=== PATIENT | male | born 1995 | race Caucasian/White ===

== ENCOUNTER 2017-06-04 19:34 | Emergency (ER) | payer BC ==
--- NOTE | 2017-06-04 19:56 | EDPHY ---
H & P Stated Complaint: cough fever body aches Time Seen by Provider: 06/04/17 19:56 - Personal History Current Tetanus/Diphtheria Vaccine: Yes Current Tetanus Diphtheria and Acellular Pertussis (TDAP): Yes - Medical/Surgical History Hx Asthma: No Hx Chronic Respiratory Disease: No Hx Diabetes: No Hx Cardiac Disease: No Hx Renal Disease: No Hx Cirrhosis: No Hx Alcoholism: No Hx HIV/AIDS: No Hx Splenectomy or Spleen Trauma: No - Social History Smoking Status: Current some day smoker Constitutional: Initial Vital Signs Temperature (C) 37 C 06/04/17 19:42 Heart Rate 111 H 06/04/17 19:42 Respiratory Rate 18 06/04/17 19:42 Blood Pressure 127/82 H 06/04/17 19:42 O2 Sat (%) 93 06/04/17 19:42 O2 Delivery Mode Room Air Allergies/Adverse Reactions: No Known Allergies Allergy (Unverified 04/17/13 13:04) Home Medications: Medication Instructions Recorded AZITHROMYCIN [Z-PACK] 250 mg PO DAILY #1 packet 06/04/17 HYDROcodone/HOMATROPINE HYCODA 1 tsp PO Q4-6PRN PRN #120 ml 06/04/17 [Hycodan Syrup (RX)] Medical Decision Making ED Course/Re-evaluation: CHIEF COMPLAINT: Fever HISTORY OF PRESENT ILLNESS: This patient is a healthy 21 year old complaining of cough, fever, and body aches onset yesterday morning. Initially he developed congestion and a mild cough. Last night, he felt febrile and could not sleep well last night. Today, his cough is worsening and he endorses some blood-tinged sputum. He denies any ill contacts. He believes he has received a flu vaccine this year. He denies chest pain, shortness of breath, vomiting, diarrhea, or other associated symptoms. REVIEW OF SYSTEMS: A 10 point review of systems was performed and is negative with the exception of the elements mentioned in the history of present illness. PHYSICAL EXAM: HR, BP, O2 Sat, RR. Temp noted General Appearance: Alert, well hydrated, appropriate, and non-toxic appearing. Head: Atraumatic without scalp tenderness or obvious injury Eyes: Pupils equal, round, reactive to light and accommodation, EOMI, no trauma , no injection. Ears: Clear bilaterally, no perforation, normal landmarks Nose: Atraumatic, no rhinorrhea, clear. Throat: There is no erythema or exudates, no lesions, normal tonsils, mucus membranes moist. Neck: Supple, nontender, no lymphadenopathy. Respiratory: Coarse rhonchi. No retractions, no distress, and no accessory muscle use. Cardiovascular: Regular rate and rhythm, no murmurs, rubs, or gallops. Good capillary refill all extremities. Gastrointestinal: Abdomen is soft, nontender, non-distended. Musculoskeletal: Normal active ROM of all extremities, atraumatic. Neurological: Alert, appropriate, and interactive. Nonfocal neuro exam. Skin: No rashes, good turgor, no nodules on palpation. Past medical history: Denies. Past surgical history: Noncontributory Family history: Noncontributory Social history: Student at [employer]. Lives in [place]. Single. DIFFERENTIAL DIAGNOSIS: The differential diagnosis for the patient's fever included but was not limited to bronchitis, pneumonia, influenza, viral syndrome, meningitis, and sepsis. MEDICAL DECISION MAKIN21 year old male presents with two day history of cough, fever, and body aches. Exam reveals coarse rhonchi bilaterally, otherwise unremarkable. Plan for flu swab. Flu swab negative. Suspect acute bronchitis. Plan to discharge home in good condition with prescription for Z-pack and Hycodan cough syrup for cough suppression. Will administer 500mg PO Zithromax here in the emergency department. Follow up and return precautions discussed. The patient is comfortable with this plan. - Data Points Laboratory Results: 06/04/17 20:05 Nasal Influenza A PCR NEGATIVE FOR FLU A (NEGATIVE) Nasal Influenza B PCR NEGATIVE FOR FLU B (NEGATIVE) Departure - Departure Disposition: Home, Routine, Self-Care Clinical Impression: Acute bronchitis Qualifiers: Bronchitis organism: other organism Qualified Code(s): J20.8 - Acute bronchitis due to other specified organisms Condition: Good Instructions: Acute Bronchitis (ED) Additional Instructions: 1. Take Zithromax as prescribed. It is important to finish your entire course of antibiotics even if you are feeling better. 2. Take Hycodan syrup as prescribed as needed for cough. 3. Take Mucinex, available over the counter, to relieve symptoms. 4. Follow up with your primary care provider for further evaluation. 5. Return to the emergency department for fever, uncontrollable cough, chest pain, shortness of breath, or other worsening of condition. Referrals: NORMA MARTEL [Other] - As per Instructions Lázaro Eckert DO [Doctor of Osteopathy] - As per Instructions Prescriptions: AZITHROMYCIN [Z-PACK] 250 mg PO DAILY #1 packet HYDROcodone/HOMATROPINE HYCODA [Hycodan Syrup (RX)] 1 tsp PO Q4-6PRN PRN #120 ml PRN Reason: Cough, Moderate Report Scribed for: Abraham Sanchez Report Scribed by: Marcella Bennett Date of Report: 06/04/17 Time of Report: 21:29
[2017-06-04] MEDS ORDERED: AZITHROMYCIN 250 MG TAB PO ONE (21:26)
[2017-06-04] MEDS ORDERED: HYDROCOD/APAP 5/325 PREPACK#6 BTL TAKEHOME ONE (21:28)
[2017-06-04 21:42] VITALS: BP 124/74; PULSE 90; RESP 16; TEMP 99.7; O2SAT 94
== END 2017-06-04 21:42 | disposition home or self-care (01) ==
DX: J20.8 Acute bronchitis due to other specified organisms (principal); F17.200 Nicotine dependence, unspecified, uncomplicated

== ENCOUNTER 2017-06-06 15:03 | Observation (INO) | payer BC ==
--- NOTE | 2017-06-06 15:45 | EDPHY ---
H & P Time Seen by Provider: 06/06/17 15:20 HPI/ROS: CHIEF COMPLAINT: Coughing blood HISTORY OF PRESENT ILLNESS: This patient is a 21 year old male with recent bronchitis diagnosis complaining of coughing and spitting up blood onset 45 minutes prior to arrival. He woke from a nap this afternoon coughing and coughed blood into his sink. The bleeding has not stopped since that time. He has been sick with a cough for four days, and was evaluated here in the emergency department 06/04/17 and d/c with azithromycin and Hycodan syrup for cough suppression. The patient denies any surgical history or any known family history of clotting disorders. No chest pain, shortness of breath, vomiting, diarrhea, or other associated symptoms REVIEW OF SYSTEMS: A 10 point review of systems was performed and is negative with the exception of the elements mentioned in the history of present illness. Past Medical/Surgical History: Denies. Social History: Student at [employer]. Lives in [place]. Single. Occasional tobacco use. Smoking Status: Current some day smoker Physical Exam: General Appearance: Alert, pleasant Eyes: Pupils equal and round, no conjunctival pallor or injection ENT, Mouth: Persistent bleeding from posterior pharynx, not associated with cough. Mucous membranes moist Neck: Normal inspection Respiratory: Lungs are clear to auscultation Cardiovascular: Regular tachycardia Gastrointestinal: Abdomen is soft and non- tender Neurological: A&O, nonfocal, normal gait Skin: Warm and dry, no rash Extremities: Nontender, no pedal edema Psychiatric: Mood and affect normal Constitutional: Initial Vital Signs Temperature (C) 36.9 C 06/06/17 15:07 Heart Rate 124 H 06/06/17 15:07 Respiratory Rate 18 06/06/17 15:07 Blood Pressure 110/82 H 06/06/17 15:07 O2 Sat (%) 94 06/06/17 15:07 O2 Delivery Mode Room Air Allergies/Adverse Reactions: No Known Allergies Allergy (Unverified 04/17/13 13:04) Home Medications: Medication Instructions Recorded AZITHROMYCIN [Z-PACK] 250 mg PO DAILY #1 packet 06/04/17 HYDROcodone/HOMATROPINE HYCODA 1 tsp PO Q4-6PRN PRN #120 ml 06/04/17 [Hycodan Syrup (RX)] Medical Decision Making - Diagnostics Imaging Results: Imaging Impressions Chest X-Ray 06/06/17 15:20 Impression: Findings consistent with airways disease are noted. Neck CTA 06/06/17 16:26 Impression: 1. Marked tonsillar enlargement with moderate narrowing of the airway. 2. Possible extravasated contrast between the tonsils, with no appreciable evidence of active extravasation. 3. Congenital spinal canal narrowing. 4. Additional findings as above. Stenoses are calculated using [place] Symptomatic Carotid Endarterectomy Trial (NASCET) criteria. Findings discussed with Dr. Marily Glaser on June 06, 2017 at 1702 hours. Imaging: Discussed imaging studies w/ call center recruiter Radiologist ED Course/Re-evaluation: 21 y/o male with recent diagnosis of acute bronchitis presents with persistent bleeding from the throat. The bleeding is ongoing and not associated with cough. The patient is currently using suction. Plan for chest x-ray labs including CBC, coag. IV normal saline 1 L given. Plan to consult with ENT. Chest x-ray shows evidence of airways disease, negative for pneumonia or other acute processes. 15:[address] Rivera, reading specialist information developer. 16:24 Dr. Rivera at bedside. She suspects right tonsillar bleed possibly secondary to hemorrhagic tonsillitis. No other evidence of bleeding noted on scope. She recommends stat CTA. Plan to administer 10mg IV dexamethasone. Plan for additional labs including chemistries, type and screen. 17:[address] Shine, radiologist. CTA negative for acute processes. The patient was taken directly to the operating room by Dr. Rivera. Persistent mild bleeding rt tonsillar area during ED stay. Differential Diagnosis: Includes though is not limited to hemoptysis, severe anemia, hypotension, pseudoaneurysm - Data Points Laboratory Results: Laboratory Results 06/06/17 15:25 06/06/17 15:25 06/06/17 06/06/17 06/06/17 16:30 15:25 15:25 WBC RBC Hgb Hct MCV MCH MCHC RDW Plt Count MPV Neut % (Auto) Lymph % (Auto) [place] % (Auto) Eos % (Auto) Baso % (Auto) Nucleat RBC Rel Count Absolute Neuts (auto) Absolute Lymphs (auto) Absolute Monos (auto) Absolute Eos (auto) Absolute Basos (auto) Absolute Nucleated RBC Immature Gran % Immature Gran # PT 14.4 SEC SEC (12.0-15.0) INR 1.10 (0.83-1.16) APTT 31.4 SEC SEC (23.0-38.0) Sodium 137 mEq/L mEq/L (134-144) Potassium 3.8 mEq/L mEq/L (3.5-5.2) Chloride 95 mEq/L L mEq/L (97-110) Carbon Dioxide 24 mEq/l mEq/l (22-31) Anion Gap 18 mEq/L H mEq/L (8-16) BUN 14 mg/dL mg/dL (7-23) Creatinine 1.2 mg/dL mg/dL (0.7-1.3) Estimated GFR > 60 Glucose 103 mg/dL H mg/dL (70-100) Calcium 9.9 mg/dL mg/dL (8.5-10.4) Patient ABO/Rh A POSITIVE Antibody Screen NEGATIVE 06/06/17 15:25 WBC 10.83 10^3/uL H 10^3/uL (3.80-9.50) RBC 5.40 10^6/uL 10^6/uL (4.40-6.38) Hgb 16.8 g/dL g/dL (13.7-17.5) Hct 44.8 % % (40.0-51.0) MCV 83.0 fL fL (81.5-99.8) MCH 31.1 pg pg (27.9-34.1) MCHC 37.5 g/dL H g/dL (32.4-36.7) RDW 11.9 % % (11.5-15.2) Plt Count 202 10^3/uL 10^3/uL (150-400) MPV 9.8 fL fL (8.7-11.7) Neut % (Auto) 75.5 % H % (39.3-74.2) Lymph % (Auto) 11.2 % L % (15.0-45.0) [place] % (Auto) 12.6 % % (4.5-13.0) Eos % (Auto) 0.1 % L % (0.6-7.6) Baso % (Auto) 0.4 % % (0.3-1.7) Nucleat RBC Rel Count 0.0 % % (0.0-0.2) Absolute Neuts (auto) 8.19 10^3/uL H 10^3/uL (1.70-6.50) Absolute Lymphs (auto) 1.21 10^3/uL 10^3/uL (1.00-3.00) Absolute Monos (auto) 1.36 10^3/uL H 10^3/uL (0.30-0.80) Absolute Eos (auto) 0.01 10^3/uL L 10^3/uL (0.03-0.40) Absolute Basos (auto) 0.04 10^3/uL 10^3/uL (0.02-0.10) Absolute Nucleated RBC 0.00 10^3/uL 10^3/uL (0-0.01) Immature Gran % 0.2 % % (0.0-1.1) Immature Gran # 0.02 10^3/uL 10^3/uL (0.00-0.10) PT INR APTT Sodium Potassium Chloride Carbon Dioxide Anion Gap BUN Creatinine Estimated GFR Glucose Calcium Patient ABO/Rh Antibody Screen Medications Given: Potassium Chloride/Dextrose/Sod Cl (D5w 1/2 Ns W/ 20 Kcl/L) 1,000 mls @ 100 mls /hr IV CONT DOLORES Stop: 06/07/17 05:44 Last Admin: 06/06/17 21:28 Dose: 1,000 mls Ampicillin Sodium/Sulbactam (Sodium 3 gm/ Sodium Chloride) 100 mls @ 200 mls/ hr IV Q6HRS DOLORES PRN Reason: Protocol Stop: 07/06/17 19:34 Last Admin: 06/06/17 21:28 Dose: 100 mls Discontinued Medications Bupivacaine HCl (Sensorcaine 0.25% Sdv) Confirm Administered Dose 30 ml .ROUTE .STK-MED ONE Stop: 06/06/17 17:38 Last Admin: 06/06/17 22:17 Dose: Not Given Dexamethasone (Decadron Injection) 10 mg IVP EDNOW ONE Stop: 06/06/17 16:49 Last Admin: 06/06/17 16:51 Dose: 10 mg Hydrogen Peroxide (Hydrogen Peroxide) 1 jono TP EDNOW ONE Stop: 06/06/17 17:30 Last Admin: 06/06/17 17:31 Dose: 1 jono Sodium Chloride (Ns) 1,000 mls @ 0 mls/hr IV EDNOW ONE; Wide Open PRN Reason: Protocol Stop: 06/06/17 15:54 Last Admin: 06/06/17 16:25 Dose: 1,000 mls Lactated Ringer's (Lr) 1,000 mls @ 0 mls/hr IV ONCE ONE PRN Reason: As Directed Stop: 06/06/17 18:11 Last Admin: 06/06/17 19:11 Dose: Not Given Midazolam HCl (Versed) 1 - 2 mg IVP ONCALL ONE Stop: 06/06/17 18:08 Last Admin: 06/06/17 22:17 Dose: Not Given Oxymetazoline HCl (Afrin Nasal [place]) 2 sprays EACHNARE EDNOW ONE Stop: 06/06/17 17:30 Last Admin: 06/06/17 17:32 Dose: 2 sprays Departure - Departure Disposition: [facility] Inpatient Acute Clinical Impression: Right tonsillar hemorrhage Condition: Fair Report Scribed for: Marily Glaser Report Scribed by: Marcella Bennett Date of Report: 06/06/17 Time of Report: 15:45 Physician Review and Approval Statement: 06/06/17 15:45 Portions of this note were transcribed by a medical staff director. I personally performed a history, physical exam, medical decision making, and confirmed accuracy of information the transcribed note.
[2017-06-06] MEDS ORDERED: NS 1,000 ML IV ONE (15:53)
[2017-06-06 15:58] LABS: % IMMATURE GRANULYOCYTES 0.2 % (0.0-1.1); ABSOLUTE IMMATURE GRANULOCYTES 0.02 10^3/uL (0.00-0.10); ADD DIFF? NO; ADD MORPH? NO; ADD SCAN? NO; ATYPICAL LYMPHOCYTE FLAG 40 (0-99); FRAGMENT RBC FLAG 0 (0-99); HEMATOCRIT 44.8 % (40.0-51.0); HEMOGLOBIN 16.8 g/dL (13.7-17.5); LEFT SHIFT FLG 10 (0-99); MEAN CELL HEMOGLOBIN 31.1 pg (27.9-34.1); MEAN CELL HEMOGLOBIN CONCENTR. 37.5 g/dL (32.4-36.7); MEAN PLATELET VOLUME 9.8 fL (8.7-11.7); PLATELET CLUMPS FLAG 10 (0-99); PLATELET COUNT 202 10^3/uL (150-400); RED CELL DISTRIBUTION WIDTH 11.9 % (11.5-15.2)
[2017-06-06 16:06] LABS: LIPEMIA HEMOLYSIS FLAG 100 (0-99)
[2017-06-06 16:14] LABS: APTT 31.4 SEC (23.0-38.0)
[2017-06-06] MEDS ORDERED: OXYMETAZOLINE 30 ML NASAL SPRAY ONE (16:17)
[2017-06-06] MEDS ORDERED: IOPAMIDOL (ISOVUE 370) 100 ML BTL IV ONE (16:28)
[2017-06-06 16:40] LABS: ANION GAP 18 mEq/L (8-16); CALCIUM 9.9 mg/dL (8.5-10.4); CARBON DIOXIDE 24 mEq/l (22-31); CHLORIDE 95 mEq/L (97-110); CREATININE 1.2 mg/dL (0.7-1.3); GLOMERULAR FILTRATION RATE > 60; GLUCOSE 103 mg/dL (70-100); POTASSIUM 3.8 mEq/L (3.5-5.2); SODIUM 137 mEq/L (134-144)
[2017-06-06] MEDS ORDERED: DEXAMETHASONE 10 MG/ML VIAL IVP ONE (16:48)
[2017-06-06] MEDS ORDERED: SILVER NITRATE APPLICATOR 1 APPL TP ONE ×2 (17:11→17:13)
[2017-06-06] MEDS ORDERED: HYDROGEN PEROXIDE 236 ML BOTTLE TP ONE ×3 (17:13→17:29)
--- NOTE | 2017-06-06 17:28 | PDCONSULT ---
Front Attendant Note: Full consult to be dictated. Pt with hemorrhagic tonsillitis. CTA negative for any other concerning pathology. He has never had surgery before and is healthy. Hasn't eaten since last night. To OR for cautery, inability to stop with more conservative measures, inc AgNo3 use. Consent obtained.
[2017-06-06 17:29] LABS: INR 1.1 (0.83-1.16); PROTIME(PATIENT) 14.4 SEC (12.0-15.0)
[2017-06-06] MEDS ORDERED: OXYMETAZOLINE 30 ML NASAL SPRAY EACHNARE ONE (17:29)
[2017-06-06] MEDS ORDERED: BUPIVACAINE 0.25% 30 ML SDV ONE (17:37)
[2017-06-06] MEDS ORDERED: MIDAZOLAM 2 MG/2 ML VIAL ONE (18:07)
[2017-06-06] MEDS ORDERED: MIDAZOLAM 2 MG/2 ML VIAL IVP ONE (18:07)
--- NOTE | 2017-06-06 18:07 | PDANEPAE ---
ANE History of Present Illness acute tonsillitis now with tonsil bleed s/f urgent tonsilectomy ANE Past Medical History Past Medical History: negative except recent bronchitis - Pulmonary History Hx Oxygen in Use at Home: No - Endocrine History Hx Diabetes: No ANE Review of Systems Review of Systems: - Exercise capacity Exercise capacity: >=4 METS ANE Patient History - Allergies Allergies/Adverse Reactions: No Known Allergies Allergy (Unverified 04/17/13 13:04) - Home Medications Home medications: home medication list seen and reviewed - NPO status NPO Status: no food or drink >8 hours NPO Since - Liquids (Date): 06/06/17 - Anes Hx Anes Hx: no prior problems - Smoking Hx Smoking Status: Current some day smoker Marijuana use: Yes - Alcohol Use Alcohol Use: Rarely - Family Anes Hx Family Anes Hx: none ANE Labs/Vital Signs - Labs Result Diagrams: 06/06/17 15:25 06/06/17 15:25 - Vital Signs Blood Pressure: 123/83 Heart Rate: 85 Respiratory Rate: 18 O2 Sat (%): 95 Height: 190.5 cm Weight: 90.718 kg ANE Physical Exam - Airway Neck exam: FROM Mallampati Score: Class 1 Mouth exam: normal dental/mouth exam - Pulmonary Pulmonary: no respiratory distress - Cardiovascular Cardiovascular: regular rate and rhythym - ASA Status ASA Status: I, E ANE Anesthesia Plan Anesthesia Plan: general endotracheal anesthesia (R/B/A explained and patient agrees to proceed)
[2017-06-06] MEDS ORDERED: LR 1,000 ML IV ONE (18:10)
[2017-06-06] MEDS ORDERED: REMIFENTANIL HCL 1 MG VIAL ONE (18:14)
[2017-06-06] MEDS ORDERED: PROPOFOL/EMULSION 500 MG/50 ML BOTTLE IV ONE (18:14)
[2017-06-06] MEDS ORDERED: fentaNYL 100 MCG/2 ML INJ ONE (18:14)
[2017-06-06] MEDS ORDERED: DEXAMETHASONE 4 MG/ML VIAL ONE ×2 (18:17)
[2017-06-06] MEDS ORDERED: ONDANSETRON 4 MG/2 ML VIAL ONE (18:17)
[2017-06-06] MEDS ORDERED: LIDOCAINE 2% 100 MG/5 ML SYR ONE (18:20)
[2017-06-06] MEDS ORDERED: PETROLAT,WHT/MIN OIL/SOD CHL 3.5 GM OPHT.OINT ONE (18:28)
--- NOTE | 2017-06-06 18:54 | POSTOPPROG ---
Post Op Note Date of Operation: 06/06/17 Surgeon: Estrellita Rivera Anesthesiologist: willy Anesthesia: GET(General Endotracheal) Pre-op Diagnosis: tonsil bleed Post-op Diagnosis: same Procedure: cautery of tonsils B Findings: prominent vessels B, more on the R superior region Inf/Abcess present in the surg proc area at time of surgery?: Yes Depth: Superfical (Skin SQ) EBL: Minimal Complications: none apparent
--- NOTE | 2017-06-06 18:55 | SOAPPROG ---
SOAP Progress Note Assessment/Plan: Assessment: Pt to be admitted overnight for supportive care. Should be on Unasyn then d/c on Augmentin. 1 more dose of decadron 12 hrs after last dose then stop. If not having any bleeding and tolerating po in am, can d/c. Plan: 06/06/17 18:54 Subjective: hemorrhagic tonsillitis, brisk bleeding from R tonsil, post cautery Objective: Vital Signs Temp Pulse Resp BP Pulse Ox 37.8 C 85 18 123/83 H 95 06/06/17 18:03 06/06/17 18:07 06/06/17 18:07 06/06/17 18:07 06/06/17 18:07 06/05/17 06/06/17 06/07/17 05:59 05:59 05:59 Intake Total 1000 Balance 1000 PT 14.4 SEC (12.0-15.0) 06/06/17 15:25 INR 1.10 (0.83-1.16) 06/06/17 15:25 ICD10 Worksheet Patient Problems: Problems Problem Status Onset Right tonsillar hemorrhage Acute
[2017-06-06] MEDS ORDERED: HYDROCODONE/APAP 5/325 TAB PO PRN (18:57)
[2017-06-06] MEDS ORDERED: NALOXONE HCL 0.4 MG/ML INJ IVP PRN (18:57)
[2017-06-06] MEDS ORDERED: ONDANSETRON 4 MG/2 ML VIAL IVP PRN ×2 (18:57→19:33)
[2017-06-06] MEDS ORDERED: METOCLOPRAMIDE 10 MG/2 ML VIAL IVP PRN (18:57)
[2017-06-06] MEDS ORDERED: PROMETHAZINE HCL 25 MG/ML INJ IVP PRN (18:57)
[2017-06-06] MEDS ORDERED: LABETALOL HCL 5 MG/ML 20 ML MDV IVP PRN (18:57)
[2017-06-06] MEDS ORDERED: LR 500 ML IV PRN (18:57)
[2017-06-06] MEDS ORDERED: PHENYLEPHRINE HCL 100 MCG/ML SYR IVP PRN (18:57)
[2017-06-06] MEDS ORDERED: ACETAMINOPHEN 500 MG TAB PO PRN (18:57)
[2017-06-06] MEDS ORDERED: ALBUTEROL 3 ML DEYVIAL IH PRN (18:57)
[2017-06-06] MEDS ORDERED: OXYCODONE/APAP 5/325 TAB PO PRN (18:57)
[2017-06-06] MEDS ORDERED: DEXAMETHASONE 4 MG/ML VIAL IVP PRN (18:57)
[2017-06-06] MEDS ORDERED: MEPERIDINE 25 MG/ML SYR IVP PRN (18:57)
[2017-06-06] MEDS ORDERED: fentaNYL 100 MCG/2 ML INJ IVP PRN (18:57)
--- NOTE | 2017-06-06 18:59 | POSTANESTH ---
Post Anesthetic Evaluation Cardiovascular Status: Normal, Stable Respiratory Status: Normal, Stable Level of Consciousness/Mental Status: Can Participate in Eval Pain Control: Adequate, Prn Tx Ordered Nausea/Vomiting Control: Adequate, Prn Tx Ordered Complications Possibly Related to Anesthesia: None Noted
[2017-06-06] MEDS ORDERED: HYDROmorphONE/DILAUDID 1 MG/ML INJ IVP PRN (19:33)
[2017-06-06] MEDS ORDERED: ONDANSETRON DISINTEGRATING 4 MG TAB PO PRN (19:33)
[2017-06-06] MEDS ORDERED: ACETAMINOPHEN 325 MG TAB PO PRN (19:33)
[2017-06-06] MEDS ORDERED: guaiFENesin/CODEINE PHOS 10 ML UDCUP PO PRN (19:36)
[2017-06-06] MEDS ORDERED: HYDROmorphone HCL/NS/PF 0.4 MG/2 ML SYR IVP PRN (19:39)
[2017-06-06] MEDS ORDERED: D5W 1/2 NS W/ 20 KCl/L 1,000 ML IV SCH (19:45)
--- NOTE | 2017-06-06 20:16 | GHP ---
[f rep st] HISTORY AND PHYSICAL DATE OF ADMISSION: 06/06/2017 HISTORY OF PRESENT ILLNESS: The patient is a 21-year-old gentleman with no past medical history who presents with sore throat and cough. He has been sick for about 4 or 5 days with an upper respirator y infection with a sore throat. He started spitting up blood today; it went on for about 45 minutes so he sought care. He had a cough for 4 days. Seen here 2 days ago and discharged with azithromycin and cough syrup. He has had some subjective fevers. No chills. Some shortness of breath. REVIEW OF SYSTEMS: A complete 10-point review of systems was conducted and negative except as noted in the HPI. PAST MEDICAL HISTORY: None. SOCIAL HISTORY: He is a student at the [employer] from [place], [place]. He li ves in [place]. Occasional tobacco. Rare alcohol. FAMILY HISTORY: Reviewed and unremarkable. No history of bleeding problems. ALLERGIES: No known drug allergies. HOME MEDICATIONS: None other than the ones that were recently prescribed. PHYSICAL EXAMINATION: PRESENTING VITALS: Temperature 36.9, blood pressure 110/82, pulse 124 now in the 80s, breathing 18 a minute, 94 on room air. GENERAL: No acute distress. Hot potato voice. HEEN T: Sclerae anicteric. Oropharynx clear. Mucous membranes moist. His oropharynx shows some dried bl ood. NECK: Supple without lymphadenopathy or JVD. LUNGS: Clear to auscultation bilaterally. HEAR T: S1, S2 without murmurs. ABDOMEN: Soft, nontender, nondistended. LOWER EXTREMITIES: Without ed freda. Calves are nontender. SKIN: Without rash. NEUROLOGIC: Exam is nonfocal. LABORATORY: White count 10.8, hematocrit 48, platelets are 202,000, INR is 1.1. Chem 7: Sodium 137 , potassium 3.8, chloride 95, bicarb 24, BUN 14, creatinine 1.2 which is a normal value, glucose is 1 03. Group A strep is negative. Chest x-ray, interpreted by me, shows mild airway disease. No infiltrate. CTA of the neck shows ton sillar enlargement with moderate narrowing of the airway. No active extravasation of contrast. I di scussed the case Dr. Estrellita Rivera. ASSESSMENT/PLAN: A 21-year-old gentleman with hemorrhagic tonsillitis status post tonsillectomy. 1. Status post tonsillectomy. A wired jaw diet or post tonsillectomy diet. Pain medicine as requir ed. 2. Acute hemorrhage. I suspect the patient will have melena in the morning. We will check a hemato crit. We will add Unasyn and another dose of steroids. 3. Tachycardia. I think this is secondary to his clinical presentation. Will follow. 4. Pain. IV Dilaudid. Pain pills as tolerated. 5. Prophylaxis. Low risk, active bleeding. Sequential compression devices. /[id number]/MODL
[2017-06-06] MEDS: AMPICILLIN/SULBACTAM 3 GM in NS 100 ML IV SCH (21:28)
--- NOTE | 2017-06-07 00:11 | GOP ---
[f rep st] OPERATIVE REPORT DATE OF OPERATION: 06/06/2017 SURGEON: Estrellita Rivera MD ANESTHESIA: General. PREOPERATIVE DIAGNOSIS: Hemorrhagic tonsillitis. POSTOPERATIVE DIAGNOSIS: Hemorrhagic tonsillitis. PROCEDURE PERFORMED: Bilateral tonsillar cautery. FINDINGS: Patient was found to have a large dilated vessel in the right superior aspect of the tonsi llar pole region. There was also some exudate throughout the tonsils, and tonsils are 3+. ESTIMATED BLOOD LOSS: Minimal. INDICATIONS: The patient is a very pleasant 21-year-old man who has a history of a sore throat for 4 days as well as significant coughing. He was diagnosed with bronchitis 2 days ago, given azithromyc in. He states that he started coughing at home and started coughing up blood and has not stopped sin ce then. This was about 2 hours ago. We attempted to get this to stop in the ER, which it did not, and so he was brought to the OR. DESCRIPTION OF PROCEDURE: Patient was first seen in the preoperative area where informed consent was obtained. He was then brought back to the operating room. Anesthesia sedated and intubated him. T he bed was turned 90 degrees. A shoulder roll was placed. He was prepped and draped in normal fashi on. A Ace-Rory mouth gag was placed in the oral cavity and then retracted and suspended giving go od visualization of the oropharynx. He had very large, almost 4+, tonsils that were cryptic. There was some exudate bilaterally, and he had an area of small ooze with a dilated vessel at the superior aspect of the tonsil. This was cauterized using the bipolar cautery on a low setting. An adenoid mi rror was used to evaluate the adenoid bed. Some bloody mucus was suctioned from this area. It was s omewhat difficult to visualize the oropharynx secondary to how large the tonsils were, but the adenoi d mirror was used to evaluate the posterior aspect of the tonsils as well as the inferior part of the tonsils, and there were no other further active bleeding areas. Bipolar cautery again was used to c auterize the superior aspect of both tonsils where the dilated vessels were, but it was especially mo re so on the right. Once this was done, saline was used to irrigate out the oral cavity. Then an or ogastric tube was placed and then suctioned until clear. At this point, all instruments were removed . The patient was turned back over to Anesthesia where he was awakened, extubated, and taken to PACU in stable condition. There were no complications, and he tolerated the procedure well. COMPLICATIONS: None. /[id number]/MODL
[2017-06-07] MEDS: AMPICILLIN/SULBACTAM 3 GM in NS 100 ML IV SCH ×5 (02:32→17:41)
--- NOTE | 2017-06-07 05:01 | GCON ---
[f rep st] CONSULTATION Corrected report DATE OF CONSULTATION: 06/06/2017 CHIEF COMPLAINT: Hemoptysis. HISTORY OF PRESENT ILLNESS: This is a patient who got diagnosed with bronchitis a couple days ago. He has had a sore throat as well as significant cough for about 4-5 days. He was given penicillin a few days ago in the ER secondary to having been diagnosed with bronchitis. He states he has coughed up a little bit of blood over the past couple days, but nothing significant, although about an hour before presentation to the ER, he woke up coughing quite a bit of blood and blood clot in the sink. It has not stopped since they came to the ER. He has not ever had surgery. He still has his tonsils. He denies headache. He is complaining of a little bit of abdominal pain that just started. He complains of shortness of breath, but only when the clots build up and then he has to cough them out and then he feels fine. He does have a history of occasional tobacco use. PAST MEDICAL HISTORY: None. SOCIAL HISTORY: Tobacco use. ALLERGIES: No known drug allergies. PHYSICAL EXAMINATION: He is awake, alert, in no apparent distress. Cranial nerves II through XII are grossly intact. Exam of the ears show no hemotympanum or effusion bilaterally. Nose shows a deviated septum to the left , but no bleeding. Oral cavity and oropharynx show tonsils that are 3+ with some exudate, especially on the left. He has a significant amount of blood in the oropharynx and this looks to be coming from the superior aspect of the right tonsil. Neck shows some bilateral cervical lymphadenopathy. Trachea is midline. His vital signs are stable. He has no stridor, wheeze, and he is saturating in the high 90s on room air. A flexible fiberoptic laryngoscopy was done to confirm patent airway. After verbal and informed consent was obtained I sprayed 1 cc of Afrin and 4% lidocaine into the nose bilaterally. Once this had sufficient time to act, the right naris was passed with the scope. This was normal. Nasopharynx was clear. Oropharynx shows large tonsils with bleeding throughout. It is difficult to see 1 spot. Oropharynx is symmetric. Bilateral vocal cords are mobile. He has no swelling or edema or obstruction of the airway. The scope was removed. ASSESSMENT AND PLAN: This is a patient who has what looks like acute hemorrhagic tonsillitis. This seems to be coming mostly from the right side and seems somewhat profuse. An urgent CTA was done just to confirm that there was no other abnormal pathology that would be causing this, as his presentation is somewhat abnormal. The CTA was evaluated with Dr. Shine and there were no obvious abnormalities besides some dilated blood vessels likely along the surface of the tonsils bilaterally. I discussed with the patient consideration for surgery. We initially tried gargling with cold water as well as hydrogen peroxide. I also tried some silver nitrate cautery over the right tonsil, although this did not seem to help at all and he continued to have fairly profuse bleeding, more on the right than the left. It was felt that he would need surgery, so informed consent was obtained for cauterization of the tonsils bilaterally. The OR was called and he will be taken today. He has not eaten any food since last night and has been drinking water just throughout the day. All of his questions were answered and he agreed, so we will plan to go to the OR now. /[id number]/MODL Ramana pt, 06/11/17, darrius VILLAR
[2017-06-07 06:03] LABS: % IMMATURE GRANULYOCYTES 0.1 % (0.0-1.1); ABSOLUTE IMMATURE GRANULOCYTES 0.01 10^3/uL (0.00-0.10); ADD DIFF? NO; ADD MORPH? NO; ADD SCAN? NO; ATYPICAL LYMPHOCYTE FLAG 40 (0-99); FRAGMENT RBC FLAG 0 (0-99); HEMATOCRIT 41.3 % (40.0-51.0); HEMOGLOBIN 14.8 g/dL (13.7-17.5); LEFT SHIFT FLG 0 (0-99); LIPEMIA HEMOLYSIS FLAG 90 (0-99); MEAN CELL HEMOGLOBIN 30.3 pg (27.9-34.1); MEAN CELL HEMOGLOBIN CONCENTR. 35.8 g/dL (32.4-36.7); MEAN CELL VOLUME 84.5 fL (81.5-99.8); MEAN PLATELET VOLUME 9.7 fL (8.7-11.7); PLATELET CLUMPS FLAG 0 (0-99); PLATELET COUNT 193 10^3/uL (150-400); RED BLOOD CELL COUNT 4.89 10^6/uL (4.40-6.38); RED CELL DISTRIBUTION WIDTH 11.9 % (11.5-15.2)
[2017-06-07 06:20] LABS: ANION GAP 14 mEq/L (8-16); CARBON DIOXIDE 27 mEq/l (22-31); CHLORIDE 99 mEq/L (97-110); CREATININE 0.9 mg/dL (0.7-1.3); GLOMERULAR FILTRATION RATE > 60; GLUCOSE 136 mg/dL (70-100); POTASSIUM 4.4 mEq/L (3.5-5.2); SODIUM 140 mEq/L (134-144)
[2017-06-07 07:04] LABS: CALCIUM 9.5 mg/dL (8.5-10.4)
[2017-06-07 07:12] VITALS: RESP 16
[2017-06-07] MEDS ORDERED: DEXAMETHASONE 4 MG/ML VIAL IVP ONE (07:35)
--- NOTE | 2017-06-07 12:31 | HOSPPROG ---
Hospitalist Progress Note Assessment/Plan: DIAGNOSES: Hemorrhagic tonsillitis in an otherwise healthy man, status post tonsillectomy PLANS: -for now continue current antibiotic and steroid therapy -will try and contact Dr. Patel regarding further plan; it appears to me the patient is stable for discharge at this time -I have ordered a respiratory pathogen panel to see if that is able to identify a responsible organism -redness and organism identified would recommend otherwise, would plan on sending him home with Augmentin SUBJECTIVE: Still with mild cough Otherwise feels much better with much less pain, no hemoptysis and no fever OBJECTIVE Vitals reviewed: Stable without fever Exam: alert oriented Does cough occasionally during my visit skin warm dry color ok resps not labored lungs clear BSs heart regular abd soft nondistended nontender, bowel sounds present limbs warm, no edema iv site ok Laboratory data Strep culture is negative with PCR pending Blood cultures pending Objective: Vital Signs Temp Pulse Resp BP Pulse Ox 36.8 C 82 16 124/72 H 94 06/07/17 07:10 06/07/17 07:10 06/07/17 07:10 06/07/17 07:10 06/07/17 07:10 Laboratory Results 06/07/17 05:24 06/07/17 05:24 06/06/17 06/07/17 06/08/17 06:59 06:59 06:59 Intake Total 3513 840 Output Total 20 Balance 3493 840 PT 14.4 SEC (12.0-15.0) 06/06/17 15:25 INR 1.10 (0.83-1.16) 06/06/17 15:25 ICD10 Worksheet Patient Problems: Problems Problem Status Onset Right tonsillar hemorrhage Acute
[2017-06-07 16:21] VITALS: BP 135/71; PULSE 69; TEMP 97.3; O2SAT 93
--- NOTE | 2017-06-07 16:39 | ASMTCMCOM ---
CM Note CM Note Notes: No needs identified, anticipate pt will dc independent when medically stable. CM available for any changes. Date Signed: 06/07/2017 04:39 PM Electronically Signed By:Marleni Shepherd RN
--- NOTE | 2017-06-08 13:44 | ASDISCHSUM ---
Discharge Information Plan Status:Home with No Needs Medically Cleared to Leave:06/06/2017 Discharge Date:06/07/2017 06:14 PM D/C Disposition:Home, Routine, Self-Care ADT D/C Disposition:Home, Routine, Self-Care Projected Discharge Date:06/07/2017 06:14 PM Transportation at D/C:Family Discharge Delay Reason: Follow-Up Date:06/07/2017 06:14 PM Discharge Slot: Final Diagnosis:s/p tonsillectomy, acute hemorrhage, tachycardia, pain Placement Information Patient Contact Information Contact Name:JACKY Relationship:Mother Address:[address] [place] [address] Work Phone: [place] Alternate Phone: State/Zip Code:[place] [address] Email: Financial Information Financial Class:HMO and PPO Plans Primary Plan Desc: OUT OF [facility] Primary Plan Number:[id number] Secondary Plan Desc: Secondary Plan Number: Assessment Information [facility] CM Progress Note CM Note CM Note Notes: No needs identified, anticipate pt will dc independent when medically stable. CM available for any changes. Date Signed: 06/07/2017 04:39 PM Electronically Signed By:Marleni Shepherd RN Intervention Information
== END 2017-06-07 18:14 | disposition home or self-care (01) ==
LOC: F3E 19:33
PROVIDERS: ADMIT Internal Medicine; ATTEND Internal Medicine
PROC: 0W337ZZ Control Bleeding in Oral Cavity and Throat, Via Natural or Artificial Opening (ICD-10-PCS; principal; 2017-06-06 18:15)
DX: J03.90 Acute tonsillitis, unspecified (principal); J35.8 Other chronic diseases of tonsils and adenoids
CPT/HCPCS: 42960; 70498; 71020; 96361; 96374; 99285; G0378; J0295; J1100; J2001; J2250; J2405; J2704; J3010; Q9967